=== PATIENT | female | born 1990 | race Caucasian/White ===

== ENCOUNTER 2019-09-28 14:41 | Emergency (ER) | payer SELFPAY ==
[~2019-09-28] VITALS: Ht 160 cm; Wt 68.0 kg
[2019-09-28 14:53] VITALS: BP 164/90
[2019-09-28] MEDS ORDERED: KETOROLAC 30MG/ML VIAL IV STA (15:04)
[2019-09-28] MEDS ORDERED: SODIUM CHLORIDE 0.9% 1,000 ML IV ONE (15:04)
== END 2019-09-28 15:29 | disposition left against medical advice (07) ==
LOC: ER 14:41
DX: R07.89 Other chest pain (principal)
CPT/HCPCS: 93005; 99283; J7030